=== PATIENT | female | born 1945 | race Caucasian/White ===

== ENCOUNTER 2021-01-20 16:02 | Emergency (ER) | payer OTHER, MEDICARE ==
[2021-01-20 16:19] VITALS: BMI 17.8
[2021-01-20 18:47] LABS: BASO % 0.3 % (0-2.0); EOS % 0.1 % (0-4.5); HEMATOCRIT 37.7 % (32.4-45.2); HEMOGLOBIN 12.4 GM/dL (10.7-15.3); LYMPH % 12.4 % (8-40); MCH 27.7 pg (25.7-33.7); MONO % 5.5 % (3.8-10.2); NEUT % 81.7 % (42.8-82.8); RBC 4.49 M/mm3 (3.60-5.2); RDW 15.6 % (11.6-15.6); WHITE BLOOD COUNT 7.3 K/mm3 (4.0-10.0)
[2021-01-20 18:57] LABS: CHLORIDE 104 mmol/L (98-107); POTASSIUM 4.3 mmol/L (3.5-5.1); SODIUM 137 mmol/L (136-145)
[2021-01-20] MEDS ORDERED: ONDANSETRON *ODT* 4 MG TABLET SL ONE (18:57)
[2021-01-20 18:59] LABS: CALCIUM 9.1 mg/dL (8.5-10.1)
[2021-01-20 19:00] LABS: ALBUMIN 3.2 g/dl (3.4-5.0); ANION GAP 9 MMOL/L (8-16); BLOOD UREA NITROGEN 21.8 mg/dL (7-18); CO2 25 mmol/L (21-32); GLUCOSE,RANDOM 103 mg/dL (74-106); MAGNESIUM 2.4 mg/dL (1.8-2.4)
[2021-01-20 19:02] LABS: INR 1.04 (0.83-1.09); PROTHROMBIN TIME (PATIENT) 12.6 SEC (9.7-13.0)
[2021-01-20 19:03] LABS: CREATININE 1.1 mg/dL (0.55-1.3); SGOT/AST 21 U/L (15-37); SGPT/ALT 14 U/L (13-61)
[2021-01-20 19:04] LABS: ACTIVATED PTT 24.5 SECONDS (25.2-36.5); BILIRUBIN,TOTAL 0.5 mg/dL (0.2-1)
[2021-01-20 19:05] LABS: TOT PROT 7.1 g/dl (6.4-8.2)
[2021-01-20 19:06] LABS: ALK PHOS 102 U/L (45-117)
[2021-01-20] MEDS ORDERED: ONDANSETRON *ODT* 4 MG TABLET ONE (19:09)
[2021-01-20 20:35] VITALS: BP 126/74; PULSE 76; TEMP 98
[2021-01-20 22:07] LABS: PLATELET ESTIMATE NORMAL
== END 2021-01-20 20:48 | disposition home or self-care (01) ==
LOC: JER 16:02
DX: U07.1 COVID-19 (principal)
CPT/HCPCS: 36415; 71275-TC; 80053; 83735; 84484; 85025; 85379; 85610; 85730; 93005; 93010; 99283-25; C9803; Q0162; Q9967; U0003